=== PATIENT | male | born 1985 ===

== ENCOUNTER 2018-03-08 22:21 | Emergency (ER) | payer SELFPAY ==
[2018-03-08 22:37] VITALS: BP 138/78; PULSE 84; RESP 16; TEMP 97.6; O2SAT 98
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
--- NOTE | 2018-03-08 23:55 | RAD ---
EXAM: XR Left Hand Complete, 3 or More Views CLINICAL HISTORY: 32 years old, male; Signs and symptoms; Other: Orif; Prior surgery; Surgery date: Post-operative (0-2 days); Surgery type: Hand; Additional info: Recent orif, "bumped" wrist TECHNIQUE: Frontal, lateral and oblique views of the left hand. COMPARISON: No relevant prior studies available. FINDINGS: Bones/joints: Evaluation limited by positioning. Pins projected over the left fourth and fifth metacarpals. Fractures identified but incompletely evaluated. IMPRESSION: Evaluation limited by positioning. Pins projected over the left fourth and fifth metacarpals. Fractures identified but incompletely evaluated. Correlate clinically. Comparison with prior imaging recommended.
== END 2018-03-09 00:50 | disposition home or self-care (01) ==
LOC: SUPCPDRO 22:21 → H.ER 22:21
DX: Z47.89 Encounter for other orthopedic aftercare (principal)